=== PATIENT | male | born 1945 | race Caucasian/White ===

== ENCOUNTER 2019-04-17 06:18 | Inpatient (IN) ==
[2019-04-17] MEDS: 0.9 % Sodium Chloride 1,000 ML IVC SCH ×3 (07:17→23:28)
[2019-04-17] MEDS ORDERED: *HR* Dextrose 50 % in Water (Syg) 50 ML SYRINGE IVP PRN (09:58)
[2019-04-17] MEDS ORDERED: D5% in Water 1,000 ML IVC PRN (09:58)
[2019-04-17] MEDS ORDERED: Dextrose Gel 15 GM/37.5 ML TUBE PO PRN ×2 (09:58)
[2019-04-17] MEDS ORDERED: Acetaminophen IV 1,000 MG/100 ML INFUS..BTL IVPB ONE (10:32)
[2019-04-17] MEDS ORDERED: *HR* FentaNYL (PF) 100 MCG/2 ML VIAL IVP PRN (10:32)
[2019-04-17] MEDS ORDERED: *HR* Promethazine 25 MG/ML VIAL IVP PRN (10:32)
[2019-04-17] MEDS ORDERED: Ondansetron 4 MG/2 ML VIAL IVP ONE (10:32)
[2019-04-17] MEDS: Insulin LISPRO 300 UNITS/3 ML VIAL SQ SCH ×2 (11:52→15:36)
[2019-04-17] MEDS: Apixaban 5 MG TABLET PO SCH (20:28)
[2019-04-17] MEDS: Metoprolol XL (24 HR) Succ 50 MG TAB.ER.24H PO SCH (20:28)
[2019-04-18 04:07] LABS: Basophils % 0.2 %; Hematocrit 34.4 % (37.5-50.1); Immature Granulocytes % 0.3 % (0-4); Lymphocytes % 11.9 %; Mean Corpuscular Hemoglobin 27.4 pg (28.0-33.3); Mean Corpuscular Volume 85.8 fL (83.0-100.0); Mean Platelet Volume 11.8 fL (9.4-12.4); Monocytes # 0.7 K/mcL (0.0-1.3); Monocytes % 7.5 %; Platelet Count 148 K/mcL (140-400); Red Blood Count 4.01 M/mcL (4.19-5.50); Red Cell Distribution Width 15.9 % (11.5-14.5); Segmented Neutrophils % 80.1 %; White Blood Count 8.8 K/mcL (4.3-11.1)
[2019-04-18 04:16] LABS: INR 1.3; Prothrombin Time 14.8 Seconds (9.4-12.1)
[2019-04-18 04:30] LABS: Calcium 8.9 mg/dL (8.6-10.3); Potassium 4.2 mEq/L (3.5-5.1)
[2019-04-18 06:10] VITALS: BP 124/65
[2019-04-18] MEDS: Apixaban 5 MG TABLET PO SCH (08:41)
[2019-04-18] MEDS: Metoprolol XL (24 HR) Succ 50 MG TAB.ER.24H PO SCH (08:42)
[2019-04-18] MEDS: Insulin LISPRO 300 UNITS/3 ML VIAL SQ SCH (08:50)
[2019-04-18] MEDS ORDERED: Furosemide 40 MG TABLET PO SCH (09:00)
[2019-04-18] MEDS ORDERED: Aspirin Enteric Coated 81 MG Tablet PO SCH (09:00)
[2019-04-18] MEDS ORDERED: *HR* SitaGLIPtin 25 MG TABLET PO SCH (09:00)
[2019-04-18] MEDS ORDERED: Multivit/Ca/Min/Fe/FA 1 TAB TABLET PO SCH (09:00)
[2019-04-18] MEDS ORDERED: Cyanocobalamin (B-12) 1,000 MCG TABLET PO SCH (09:00)
[2019-04-18 10:29] LABS: Basophils % 0.3 %; Eosinophils % 0.1 %; Hematocrit 35.1 % (37.5-50.1); Hemoglobin 11.5 g/dL (12.9-16.9); Immature Granulocytes % 0.4 % (0-4); Lymphocytes # 1.4 K/mcL (0.6-4.6); Lymphocytes % 14.5 %; Mean Corpuscular HGB Conc 32.8 g/dL (31.6-35.5); Mean Corpuscular Hemoglobin 26.7 pg (28.0-33.3); Mean Corpuscular Volume 81.6 fL (83.0-100.0); Mean Platelet Volume 11.8 fL (9.4-12.4); Monocytes # 0.7 K/mcL (0.0-1.3); Monocytes % 7.4 %; Neutrophils # 7.3 K/mcL (1.6-8.9); Platelet Count 133 K/mcL (140-400); Segmented Neutrophils % 77.3 %; White Blood Count 9.5 K/mcL (4.3-11.1)
== END 2019-04-18 11:22 | disposition home or self-care (01) | DRG 274 ==
LOC: 1NENUOBS 06:18 → ICNU 11:33
PROVIDERS: ADMIT Internal Medicine Cardiovascular Disease; ATTEND Internal Medicine Cardiovascular Disease

== ENCOUNTER 2020-02-17 10:10 | Inpatient (IN) ==
[2020-02-17 11:28] LABS: Basophils # 0.1 K/mcL (0.0-0.2); Basophils % 0.6 %; Eosinophils # 0.1 K/mcL (0.0-0.6); Eosinophils % 1.7 %; Hematocrit 38.1 % (37.5-50.1); Hemoglobin 11.3 g/dL (12.9-16.9); Immature Granulocytes % 0.5 % (0-4); Lymphocytes # 1.5 K/mcL (0.6-4.6); Lymphocytes % 18.1 %; Mean Corpuscular HGB Conc 29.7 g/dL (31.6-35.5); Mean Corpuscular Hemoglobin 25.6 pg (28.0-33.3); Mean Corpuscular Volume 86.4 fL (83.0-100.0); Mean Platelet Volume 11.6 fL (9.4-12.4); Monocytes # 0.7 K/mcL (0.0-1.3); Monocytes % 8.6 %; Platelet Count 174 K/mcL (140-400); Red Blood Count 4.41 M/mcL (4.19-5.50); Red Cell Distribution Width 19.8 % (11.5-14.5); Segmented Neutrophils % 70.5 %; White Blood Count 8.4 K/mcL (4.3-11.1)
[2020-02-17 11:48] LABS: Calcium 9.1 mg/dL (8.6-10.3); Potassium 4.2 mEq/L (3.5-5.1)
[2020-02-17] MEDS ORDERED: Azithromycin 500 MG in 0.9 % Sodium Chloride 250 ML IVPB ONE (11:53)
[2020-02-17] MEDS ORDERED: CefTRIAXone 1,000 MG VIAL IM ONE (11:53)
[2020-02-17 11:57] LABS: Troponin I 0.06 ng/mL (< 0.04)
[2020-02-17] MEDS ORDERED: Azithromycin 500 MG in D5% in Water 250 ML IVPB SCH ×2 (12:00→14:00)
[2020-02-17] MEDS ORDERED: cefTRIAXone 1,000 MG in Water for inj. (sterile) 10 ML IVP ONE (12:40)
[2020-02-17] MEDS ORDERED: Naloxone 0.4 MG/ML INJ IVP PRN (13:18)
[2020-02-17] MEDS ORDERED: Ondansetron 4 MG/2 ML VIAL IVP PRN (13:18)
[2020-02-17] MEDS ORDERED: Furosemide 20 MG/2 ML VIAL IVP ONE (13:23)
[2020-02-17] MEDS ORDERED: Perflutren Lipid Microsphere 1.3 ML in 0.9 % Sodium Chloride 8.7 ML IVP PRN (13:36)
[2020-02-17] MEDS ORDERED: D5% in Water 1,000 ML IVC PRN (13:59)
[2020-02-17] MEDS ORDERED: Dextrose Gel 15 GM/37.5 ML TUBE PO PRN ×2 (13:59)
[2020-02-17] MEDS ORDERED: *HR* Dextrose 50 % in Water (Vial) 50 ML VIAL IVP PRN (13:59)
[2020-02-17] MEDS ORDERED: cefTRIAXone 1,000 MG in Water for inj. (sterile) 10 ML IVP SCH (14:00)
[2020-02-17] MEDS ORDERED: *HR* Heparin 5,000 UNIT/ML VIAL SQ SCH (14:00)
[2020-02-17] MEDS ORDERED: *HR* Heparin 5,000 UNIT/ML VIAL IVP PRN ×2 (14:02)
[2020-02-17] MEDS ORDERED: *HR* Heparin 5,000 UNIT/ML VIAL IVP ONE (14:02)
[2020-02-17] MEDS ORDERED: Nitroglycerin 0.4 MG TAB.SUBL SL PRN (14:24)
[2020-02-17] MEDS: Ipratropium/Albuterol Neb 3 ML IH SCH ×2 (16:05→21:16)
[2020-02-17 17:48] LABS: Magnesium 2.2 mg/dL (1.6-2.6); Troponin I 0.05 ng/mL (< 0.04)
[2020-02-17 17:53] LABS: Hematocrit 37.6 % (37.5-50.1); Hemoglobin 11.2 g/dL (12.9-16.9); Mean Corpuscular HGB Conc 29.8 g/dL (31.6-35.5); Mean Corpuscular Hemoglobin 25.5 pg (28.0-33.3); Mean Corpuscular Volume 85.6 fL (83.0-100.0); Mean Platelet Volume 11.7 fL (9.4-12.4); Platelet Count 172 K/mcL (140-400); Red Blood Count 4.39 M/mcL (4.19-5.50); Red Cell Distribution Width 19.8 % (11.5-14.5); White Blood Count 9.9 K/mcL (4.3-11.1)
[2020-02-17 17:54] LABS: Heparin anti-factor XA UFH < 0.04 IU/mL (0.30-0.70); INR 1.1; Prothrombin Time 12.5 Seconds (9.4-12.1)
[2020-02-17 17:57] LABS: Activated Partial Thrombo Time 30.9 Seconds (26.0-36.0)
[2020-02-17] MEDS: Heparin 25,000UNIT/250ML 1/2NS 25,000 UNIT/250 ML IV.SOLN IVC SCH (18:48)
[2020-02-17] MEDS: Insulin LISPRO 300 UNITS/3 ML VIAL SQ SCH ×2 (19:59→23:26)
[2020-02-17] MEDS: Metoprolol XL (24 HR) Succ 50 MG TAB.ER.24H PO SCH (23:26)
[2020-02-18 02:00] LABS: Basophils # 0.1 K/mcL (0.0-0.2); Basophils % 0.5 %; Eosinophils # 0.1 K/mcL (0.0-0.6); Hematocrit 34.8 % (37.5-50.1); Hemoglobin 10.5 g/dL (12.9-16.9); Immature Granulocytes % 0.3 % (0-4); Lymphocytes % 20.5 %; Mean Corpuscular HGB Conc 30.2 g/dL (31.6-35.5); Mean Corpuscular Hemoglobin 25.3 pg (28.0-33.3); Mean Corpuscular Volume 83.9 fL (83.0-100.0); Mean Platelet Volume 11.8 fL (9.4-12.4); Monocytes # 0.7 K/mcL (0.0-1.3); Monocytes % 7.4 %; Neutrophils # 6.8 K/mcL (1.6-8.9); Platelet Count 165 K/mcL (140-400); Red Blood Count 4.15 M/mcL (4.19-5.50); Red Cell Distribution Width 19.8 % (11.5-14.5); Segmented Neutrophils % 70.3 %; White Blood Count 9.7 K/mcL (4.3-11.1)
[2020-02-18 02:18] LABS: Albumin 3.8 g/dL (3.5-5.7); Albumin/Globulin Ratio 1.8 (1.1-2.2); Bilirubin,Total 0.7 mg/dL (0.3-1.0); Calcium 8.6 mg/dL (8.6-10.3); Chol/HDL Ratio 3.2 (0-4.9); Globulin 2.1 g/dL (2.4-3.5); Potassium 4.7 mEq/L (3.5-5.1); Total Protein 5.9 g/dL (6.4-8.9)
[2020-02-18] MEDS: Ipratropium/Albuterol Neb 3 ML IH SCH ×4 (03:50→22:16)
[2020-02-18] MEDS: Insulin LISPRO 300 UNITS/3 ML VIAL SQ SCH ×4 (08:05→21:47)
[2020-02-18 09:35] LABS: Estimated Average Glucose 180 mg/dl; Hemoglobin A1C 7.9 %
[2020-02-18] MEDS: Metoprolol XL (24 HR) Succ 50 MG TAB.ER.24H PO SCH ×2 (10:24→20:01)
[2020-02-18] MEDS: Aspirin Enteric Coated 81 MG Tablet PO SCH (10:25)
[2020-02-18] MEDS: allopurinoL 100 MG TABLET PO SCH (10:25)
[2020-02-18] MEDS: Furosemide 20 MG/2 ML VIAL IVP SCH (10:25)
[2020-02-18] MEDS ORDERED: cefTRIAXone 1,000 MG in Water for inj. (sterile) 10 ML IVP SCH (12:00)
[2020-02-18] MEDS ORDERED: Azithromycin 500 MG in D5% in Water 250 ML IVPB SCH (12:00)
[2020-02-18] MEDS: Heparin 25,000UNIT/250ML 1/2NS 25,000 UNIT/250 ML IV.SOLN IVC SCH (12:58)
[2020-02-18] MEDS ORDERED: Furosemide 20 MG/2 ML VIAL IVP ONE (18:30)
[2020-02-19 01:55] LABS: Immature Granulocytes % 0.2 % (0-4); Mean Platelet Volume 11.8 fL (9.4-12.4)
[2020-02-19 01:57] LABS: Basophils # 0.1 K/mcL (0.0-0.2); Basophils % 0.7 %; Eosinophils # 0.2 K/mcL (0.0-0.6); Eosinophils % 2.2 %; Hematocrit 36.2 % (37.5-50.1); Hemoglobin 10.6 g/dL (12.9-16.9); Lymphocytes # 2.4 K/mcL (0.6-4.6); Lymphocytes % 25.3 %; Mean Corpuscular HGB Conc 29.3 g/dL (31.6-35.5); Mean Corpuscular Volume 85.4 fL (83.0-100.0); Monocytes # 0.8 K/mcL (0.0-1.3); Monocytes % 8.7 %; Platelet Count 171 K/mcL (140-400); Red Blood Count 4.24 M/mcL (4.19-5.50); Segmented Neutrophils % 62.9 %; White Blood Count 9.5 K/mcL (4.3-11.1)
[2020-02-19 02:08] LABS: Calcium 8.7 mg/dL (8.6-10.3); Potassium 4.2 mEq/L (3.5-5.1)
[2020-02-19 03:08] LABS: Platelet Estimate Normal (Normal); Poikilocytosis 1+ (Not Present)
[2020-02-19] MEDS: Ipratropium/Albuterol Neb 3 ML IH SCH ×4 (04:19→22:14)
[2020-02-19] MEDS: Aspirin Enteric Coated 81 MG Tablet PO SCH (08:03)
[2020-02-19] MEDS: Furosemide 20 MG/2 ML VIAL IVP SCH (08:03)
[2020-02-19] MEDS: allopurinoL 100 MG TABLET PO SCH (08:03)
[2020-02-19] MEDS: Metoprolol XL (24 HR) Succ 50 MG TAB.ER.24H PO SCH ×2 (08:03→19:57)
[2020-02-19] MEDS: Insulin LISPRO 300 UNITS/3 ML VIAL SQ SCH ×4 (08:04→20:18)
[2020-02-19] MEDS: Heparin 25,000UNIT/250ML 1/2NS 25,000 UNIT/250 ML IV.SOLN IVC SCH (16:57)
[2020-02-19] MEDS: Furosemide 40 MG/4 ML VIAL IVP SCH (19:56)
[2020-02-20] MEDS: Ipratropium/Albuterol Neb 3 ML IH SCH ×4 (03:54→21:56)
[2020-02-20] MEDS ORDERED: NON-FORMULARY MEDICATION 1 EACH EACH (Atorvastatin Calcium [Lipitor] 20 MG) PO SCH (09:00)
[2020-02-20] MEDS: Metoprolol XL (24 HR) Succ 50 MG TAB.ER.24H PO SCH ×2 (09:09→21:58)
[2020-02-20] MEDS: allopurinoL 100 MG TABLET PO SCH (09:09)
[2020-02-20] MEDS: Furosemide 40 MG/4 ML VIAL IVP SCH ×2 (09:10→21:57)
[2020-02-20] MEDS: Finasteride 5 MG TABLET PO SCH (09:10)
[2020-02-20] MEDS: Aspirin Enteric Coated 81 MG Tablet PO SCH (09:10)
[2020-02-20] MEDS: Insulin LISPRO 300 UNITS/3 ML VIAL SQ SCH ×4 (09:11→22:00)
[2020-02-20 10:22] LABS: Calcium 8.8 mg/dL (8.6-10.3); Potassium 4.3 mEq/L (3.5-5.1)
[2020-02-20 10:25] LABS: Hemoglobin 9.9 g/dL (12.9-16.9); Immature Granulocytes % 0.4 % (0-4)
[2020-02-20 10:27] LABS: Basophils % 0.6 %; Eosinophils # 0.2 K/mcL (0.0-0.6); Eosinophils % 2.4 %; Hematocrit 33.9 % (37.5-50.1); Immature Platelets 6.3 % (1.1-6.1); Lymphocytes # 1.8 K/mcL (0.6-4.6); Lymphocytes % 26.3 %; Mean Corpuscular HGB Conc 29.2 g/dL (31.6-35.5); Mean Corpuscular Hemoglobin 24.9 pg (28.0-33.3); Mean Corpuscular Volume 85.2 fL (83.0-100.0); Mean Platelet Volume 12.3 fL (9.4-12.4); Monocytes # 0.7 K/mcL (0.0-1.3); Monocytes % 9.3 %; Neutrophils # 4.3 K/mcL (1.6-8.9); Nucleated Red Blood Cells 0.3 /100 WBC (0); Platelet Count 128 K/mcL (140-400); Red Blood Count 3.98 M/mcL (4.19-5.50); Red Cell Distribution Width 19.7 % (11.5-14.5)
[2020-02-20 18:13] LABS: Bilirubin,Urine Negative (Negative); Blood,Urine Trace-intact (Negative); Clarity,Urine Clear (Clear); Color,Urine Yellow (Yellow); Glucose,Urine (UA) Normal (Normal); Ketones,Urine Negative (Negative); Leukocyte Esterase,Urine Negative (Negative); Nitrite,Urine Negative (Negative); Protein,Urine Negative (Neg-Trace); Urobilinogen,Urine Normal (Normal)
[2020-02-20 18:24] LABS: RBC,Urine 0-3 per hpf (0-3)
[2020-02-20] MEDS: Heparin 25,000UNIT/250ML 1/2NS 25,000 UNIT/250 ML IV.SOLN IVC SCH (23:07)
[2020-02-21] MEDS: Heparin 25,000UNIT/250ML 1/2NS 25,000 UNIT/250 ML IV.SOLN IVC SCH (02:14)
[2020-02-21] MEDS: Ipratropium/Albuterol Neb 3 ML IH SCH ×4 (04:01→21:01)
[2020-02-21 04:12] LABS: Basophils % 0.6 %; Hematocrit 33.5 % (37.5-50.1); Mean Corpuscular Volume 85.2 fL (83.0-100.0); Red Blood Count 3.93 M/mcL (4.19-5.50); Red Cell Distribution Width 19.6 % (11.5-14.5)
[2020-02-21 04:14] LABS: Basophils # 0.1 K/mcL (0.0-0.2); Eosinophils # 0.1 K/mcL (0.0-0.6); Eosinophils % 1.5 %; Hemoglobin 9.7 g/dL (12.9-16.9); Immature Granulocytes % 0.4 % (0-4); Immature Platelets 6.3 % (1.1-6.1); Lymphocytes # 1.3 K/mcL (0.6-4.6); Mean Corpuscular Hemoglobin 24.7 pg (28.0-33.3); Mean Platelet Volume 11.5 fL (9.4-12.4); Monocytes % 11.5 %; Platelet Count 127 K/mcL (140-400); White Blood Count 8.4 K/mcL (4.3-11.1)
[2020-02-21 04:36] LABS: Calcium 9.2 mg/dL (8.6-10.3); Potassium 4.1 mEq/L (3.5-5.1)
[2020-02-21] MEDS: allopurinoL 100 MG TABLET PO SCH (08:56)
[2020-02-21] MEDS: Metoprolol XL (24 HR) Succ 50 MG TAB.ER.24H PO SCH ×2 (08:56→21:44)
[2020-02-21] MEDS: Aspirin 325 MG TABLET PO SCH (08:56)
[2020-02-21] MEDS: Finasteride 5 MG TABLET PO SCH (08:57)
[2020-02-21] MEDS: Furosemide 40 MG/4 ML VIAL IVP SCH ×2 (08:57→21:44)
[2020-02-21] MEDS: Insulin LISPRO 300 UNITS/3 ML VIAL SQ SCH ×4 (08:58→21:51)
[2020-02-21] MEDS: Insulin DETEMIR 100 UNIT/ML X5UNITS SUBQ SCH (10:05)
[2020-02-21] MEDS ORDERED: Isovue-370 500 ML BOTTLE IVP ONE (12:51)
[2020-02-21] MEDS: Ringers Solution, Lactated 1,000 ML IVC SCH (15:38)
[2020-02-22] MEDS: Ipratropium/Albuterol Neb 3 ML IH SCH ×4 (03:47→21:54)
[2020-02-22] MEDS: Heparin 25,000UNIT/250ML 1/2NS 25,000 UNIT/250 ML IV.SOLN IVC SCH ×2 (03:54→16:30)
[2020-02-22 06:23] LABS: Hematocrit 30.6 % (37.5-50.1); Hemoglobin 9.2 g/dL (12.9-16.9); Mean Corpuscular HGB Conc 30.1 g/dL (31.6-35.5); Mean Corpuscular Hemoglobin 25.6 pg (28.0-33.3); Mean Platelet Volume 11.7 fL (9.4-12.4); Platelet Count 124 K/mcL (140-400); Red Cell Distribution Width 19.4 % (11.5-14.5); White Blood Count 5.9 K/mcL (4.3-11.1)
[2020-02-22 06:47] LABS: Calcium 9.3 mg/dL (8.6-10.3); Magnesium 1.9 mg/dL (1.6-2.6); Potassium 4.2 mEq/L (3.5-5.1)
[2020-02-22] MEDS: Finasteride 5 MG TABLET PO SCH (08:40)
[2020-02-22] MEDS: Metoprolol XL (24 HR) Succ 50 MG TAB.ER.24H PO SCH ×2 (08:40→20:18)
[2020-02-22] MEDS: Aspirin 325 MG TABLET PO SCH (08:40)
[2020-02-22] MEDS: Furosemide 40 MG/4 ML VIAL IVP SCH ×2 (08:42→20:18)
[2020-02-22] MEDS: allopurinoL 100 MG TABLET PO SCH (08:42)
[2020-02-22] MEDS: Insulin LISPRO 300 UNITS/3 ML VIAL SQ SCH ×4 (08:42→21:19)
[2020-02-22] MEDS: Ringers Solution, Lactated 1,000 ML IVC SCH (08:43)
[2020-02-22] MEDS: Insulin DETEMIR 100 UNIT/ML X5UNITS SUBQ SCH (08:45)
[2020-02-22] MEDS: Chloraseptic Spray 177 ML BOTTLE MM PRN ×2 (12:13→16:32)
[2020-02-23 02:13] LABS: BUN/Creatinine Ratio 25 (6-26); Blood Urea Nitrogen 34 mg/dL (8-23); Calcium 9.3 mg/dL (8.6-10.3); Carbon Dioxide 26 mEq/L (23-29); Chloride 100 mEq/L (98-107); Glucose 258 mg/dL (70-105); Osmolality,Calculated 296 (280-300); Sodium 135 mEq/L (136-145); eGFR For African Americans > 60 (> 60); eGFR For Non-African Americans 51 (> 60)
[2020-02-23] MEDS: Ringers Solution, Lactated 1,000 ML IVC SCH ×2 (02:48→13:02)
[2020-02-23] MEDS: Ipratropium/Albuterol Neb 3 ML IH SCH ×4 (03:41→22:16)
[2020-02-23] MEDS: Aspirin 325 MG TABLET PO SCH (08:08)
[2020-02-23] MEDS: allopurinoL 100 MG TABLET PO SCH (08:08)
[2020-02-23] MEDS: Furosemide 40 MG/4 ML VIAL IVP SCH ×2 (08:08→18:46)
[2020-02-23] MEDS: Finasteride 5 MG TABLET PO SCH (08:08)
[2020-02-23] MEDS: Metoprolol XL (24 HR) Succ 50 MG TAB.ER.24H PO SCH ×2 (08:08→20:36)
[2020-02-23] MEDS: Insulin LISPRO 300 UNITS/3 ML VIAL SQ SCH ×4 (08:13→21:37)
[2020-02-23] MEDS: Insulin DETEMIR 100 UNIT/ML X5UNITS SUBQ SCH (10:17)
[2020-02-23 13:57] LABS: Magnesium 1.8 mg/dL (1.6-2.6)
[2020-02-23 15:20] LABS: Adenovirus Not Detected (Not Detect); Bordetella Pertussis Not Detected (Not Detect); Chlamydophila pneumoniae Not Detected (Not Detect); Coronavirus 229E Not Detected (Not Detect); Coronavirus HKU1 Not Detected (Not Detect); Coronavirus NL63 Not Detected (Not Detect); Coronavirus OC43 Not Detected (Not Detect); Human Metapneumovirus Not Detected (Not Detect); Human Rhinovirus/Enterovirus Not Detected (Not Detect); Influenza A Subtype 2009 H1 Not Detected (Not Detect); Influenza B Not Detected (Not Detect); Mycoplasma pneumoniae Not Detected (Not Detect); Parainfluenza Virus 1 Not Detected (Not Detect); Parainfluenza Virus 2 Not Detected (Not Detect); Parainfluenza Virus 3 Not Detected (Not Detect); Parainfluenza Virus 4 Not Detected (Not Detect); Respiratory Syncytial Virus Not Detected (Not Detect); SARS-CoV-2 Not Detected (Not Detect)
[2020-02-24] MEDS: Furosemide 40 MG/4 ML VIAL IVP SCH ×3 (01:39→20:46)
[2020-02-24] MEDS ORDERED: Melatonin 3 MG TABLET PO ONE (03:25)
[2020-02-24] MEDS: Ipratropium/Albuterol Neb 3 ML IH SCH ×4 (03:45→21:32)
[2020-02-24 06:11] LABS: Hematocrit 32.6 % (37.5-50.1); Hemoglobin 9.7 g/dL (12.9-16.9); Mean Corpuscular HGB Conc 29.8 g/dL (31.6-35.5); Red Cell Distribution Width 19.5 % (11.5-14.5)
[2020-02-24 06:13] LABS: Immature Platelets 7.7 % (1.1-6.1); Mean Corpuscular Hemoglobin 25.2 pg (28.0-33.3); Mean Corpuscular Volume 84.7 fL (83.0-100.0); Mean Platelet Volume 11.9 fL (9.4-12.4); Red Blood Count 3.85 M/mcL (4.19-5.50); White Blood Count 6.6 K/mcL (4.3-11.1)
[2020-02-24 06:32] LABS: Calcium 9.6 mg/dL (8.6-10.3); Potassium 3.7 mEq/L (3.5-5.1)
[2020-02-24] MEDS: allopurinoL 100 MG TABLET PO SCH (08:03)
[2020-02-24] MEDS: Finasteride 5 MG TABLET PO SCH (08:03)
[2020-02-24] MEDS: Aspirin 325 MG TABLET PO SCH (08:03)
[2020-02-24] MEDS: Insulin LISPRO 300 UNITS/3 ML VIAL SQ SCH ×4 (08:04→20:46)
[2020-02-24] MEDS: Metoprolol XL (24 HR) Succ 50 MG TAB.ER.24H PO SCH ×2 (08:04→20:45)
[2020-02-24] MEDS: Insulin DETEMIR 100 UNIT/ML X5UNITS SUBQ SCH (08:11)
[2020-02-24] MEDS: Chloraseptic Spray 177 ML BOTTLE MM PRN (08:11)
[2020-02-25] MEDS: Ipratropium/Albuterol Neb 3 ML IH SCH ×4 (03:38→22:09)
[2020-02-25 05:34] LABS: Calcium 8.9 mg/dL (8.6-10.3); Magnesium 1.8 mg/dL (1.6-2.6); Potassium 3.8 mEq/L (3.5-5.1)
[2020-02-25] MEDS ORDERED: Insulin LISPRO 300 UNITS/3 ML VIAL SUBQ SCH ×3 (07:46→21:00)
[2020-02-25] MEDS: Aspirin 325 MG TABLET PO SCH (09:17)
[2020-02-25] MEDS: allopurinoL 100 MG TABLET PO SCH (09:17)
[2020-02-25] MEDS: Furosemide 40 MG/4 ML VIAL IVP SCH ×2 (09:17→20:47)
[2020-02-25] MEDS: Finasteride 5 MG TABLET PO SCH (09:18)
[2020-02-25] MEDS: Metoprolol XL (24 HR) Succ 50 MG TAB.ER.24H PO SCH ×2 (09:18→20:46)
[2020-02-25] MEDS: Insulin LISPRO 300 UNITS/3 ML VIAL SUBQ SCH ×3 (09:28→16:36)
[2020-02-25] MEDS: Insulin DETEMIR 100 UNIT/ML X5UNITS SUBQ SCH (09:28)
[2020-02-26] MEDS: Ipratropium/Albuterol Neb 3 ML IH SCH ×3 (03:43→15:50)
[2020-02-26 06:11] LABS: Hemoglobin 9.4 g/dL (12.9-16.9); Mean Corpuscular Volume 86.4 fL (83.0-100.0); Red Cell Distribution Width 19.6 % (11.5-14.5)
[2020-02-26 06:12] LABS: Hematocrit 32.4 % (37.5-50.1); Immature Platelets 8.7 % (1.1-6.1); Mean Corpuscular Hemoglobin 25.1 pg (28.0-33.3); Mean Platelet Volume 12.2 fL (9.4-12.4); Red Blood Count 3.75 M/mcL (4.19-5.50)
[2020-02-26] MEDS: Insulin LISPRO 300 UNITS/3 ML VIAL SUBQ SCH ×2 (07:17→11:17)
[2020-02-26] MEDS: Finasteride 5 MG TABLET PO SCH (08:52)
[2020-02-26] MEDS: Metoprolol XL (24 HR) Succ 50 MG TAB.ER.24H PO SCH (08:52)
[2020-02-26] MEDS: allopurinoL 100 MG TABLET PO SCH (08:52)
[2020-02-26] MEDS: Furosemide 40 MG/4 ML VIAL IVP SCH (08:52)
[2020-02-26] MEDS: Aspirin 325 MG TABLET PO SCH (08:52)
[2020-02-26] MEDS: Insulin DETEMIR 100 UNIT/ML X5UNITS SUBQ SCH (09:11)
[2020-02-26 10:30] VITALS: BP 101/67
[2020-02-26] MEDS: Insulin LISPRO 300 UNITS/3 ML VIAL SQ SCH (13:29)
== END 2020-02-26 18:45 | DRG 291 ==
LOC: EMEROOARM 10:10 → 2NNU 10:10 → SUATTDRO 14:00 → 2NNU 14:25 → SUATTDRO 02-18 15:24 → 3ANU 02-23 18:43
PROVIDERS: ADMIT Internal Medicine; ATTEND Internal Medicine